=== PATIENT | male | born 1955 | race Caucasian/White ===

== ENCOUNTER 2018-04-29 07:24 | Emergency (ER) | payer OTHER ==
[~2018-04-29] VITALS: Wt 80.0 kg
[2018-04-29] MEDS ORDERED: SOD CHLORIDE 0.9% 1,000 ML IV STA (07:55)
[2018-04-29] MEDS ORDERED: TERI14TA PO (09:21)
[2018-04-29] MEDS ORDERED: ROSU10TA55 PO (09:23)
[2018-04-29] MEDS ORDERED: ALFU10TA2 PO (09:23)
[2018-04-29] MEDS ORDERED: ERGO500013 PO (09:23)
[2018-04-29] MEDS ORDERED: CLON1TAB13 PO (09:24)
[2018-04-29] MEDS ORDERED: OMEP40CA6 PO (09:25)
[2018-04-29] MEDS ORDERED: CYAN500T46 PO (09:25)
--- NOTE | 2018-04-29 10:06 | ERD ---
ER Documentation Chief Complaint Chief Complaint syncopal episode at home witnessed by son, no seizure activity, no trauma HPI This is a 63-year-old man who said he was in the living room walking across the room when he got dizzy, he said he felt lightheaded. He denied any chest pain or shortness of breath he said that he thought he might pass out so he laid down on the floor where his son said he passed out for 5-10 seconds and then woke up. When he woke up he said he felt a bit dizzy but it gradually resolved after a few minutes. He never had any chest pain or difficulty breathing no focal neurological complaints of numbness weakness speech change visual change or headache. The patient said he has been having some vague left upper chest pain off and on for the past 10 days but no pain today. ROS All systems reviewed and are negative except as per history of present illness. Medications Home Meds Reported Medications Omeprazole* (Omeprazole*) 40 Mg Capsule.dr, 40 MG PO AC B, #30 CAP 04/29/18 Cyanocobalamin* (Vitamin B12*) 500 Mcg Tab, 1000 MCG PO DAILY, TAB 04/29/18 Clonazepam* (Clonazepam*) 1 Mg Tablet, 1 MG PO DAILY PRN for ANXIETY, TAB 04/29/18 Rosuvastatin Calcium* (Crestor*) 10 Mg Tablet, 10 MG PO QHS, #30 TAB 04/29/18 Alfuzosin Hcl* (Alfuzosin Hcl*) 10 Mg Tab.er.24h, 10 MG PO DAILY 04/29/18 Ergocalciferol (Vitamin D2) (VITAMIN D2) 50,000 Unit Capsule, 89688 UNIT PO WEEKLY, CAP 04/29/18 Teriflunomide (Aubagio) 14 Mg Tablet, 14 MG PO DAILY 04/29/18 Allergies Allergies: Coded Allergies: No Known Allergy (Unverified , 04/29/18) PMhx/Soc History of Surgery: Yes (appendicitis) Anesthesia Reaction: No Hx Neurological Disorder: No Hx Respiratory Disorders: No Hx Cardiac Disorders: Yes (htn) Hx Psychiatric Problems: No Hx Miscellaneous Medical Probl: Yes (ms) Hx Alcohol Use: Yes (occasionally) Hx Substance Use: No Hx Tobacco Use: Yes (pack/day) Smoking Status: Heavy tobacco smoker FmHx Family History: No coronary disease Physical Exam Vitals Vital Signs Date Temp Pulse Resp B/P (MAP) Pulse Ox O2 O2 Flow FiO2 Time Delivery Rate 04/29/18 72 14 114/68 97 Room Air 08:15 (83) 68 112/67 (82) 70 106/66 (79) 04/29/18 68 14 117/79 95 Room Air 07:34 (92) 04/29/18 97.6 66 18 117/70 96 07:28 (86) Physical Exam Const: Well-developed, well-nourished Head: Atraumatic, normocephalic Eyes: Normal Conjunctiva, PERRLA, EOMI, normal sclera, no nystagmus ENT: Normal External Ears, Nose and Mouth, moist mucus membranes. Neck: Full range of motion. No meningismus, no lymphadenopathy. Resp: Clear to auscultation bilaterally, no wheezing, rhonchi, rales Cardio: Regular rate and rhythm, no murmurs, S1 S2 present Abd: Soft, non tender x 4, non distended. Normal bowel sounds, no guarding or rebound, no pulsitile abdominal masses or bruits Skin: No petechiae or rashes, no ecchymosis , no maculopapular rash Back: No midline or flank tenderness Ext: No cyanosis, or edema, FROM x 4, normal inspection, neurovascularly intact x 4 Neur: Awake and alert, STR 5/5 x 4, sensation intact x 4, no focal findings, cerebellum intact Psych: Normal Mood and Affect Result Diagram: 04/29/18 0753 04/29/18 0753 Results 24 hrs Laboratory Tests Test 04/29/18 07:53 White Blood Count 8.9 10^3/ul Red Blood Count 3.92 10^6/ul Hemoglobin 12.5 g/dl Hematocrit 39.3 % Mean Corpuscular Volume 100.3 fl Mean Corpuscular Hemoglobin 31.9 pg Mean Corpuscular Hemoglobin Concent 31.8 g/dl Red Cell Distribution Width 12.7 % Platelet Count 184 10^3/UL Mean Platelet Volume 11.2 fl Immature Granulocytes % 0.700 % Neutrophils % 75.1 % Lymphocytes % 14.9 % Monocytes % 7.9 % Eosinophils % 1.2 % Basophils % 0.2 % Nucleated Red Blood Cells % 0.0 /100WBC Immature Granulocytes # 0.060 10^3/ul Neutrophils # 6.7 10^3/ul Lymphocytes # 1.3 10^3/ul Monocytes # 0.7 10^3/ul Eosinophils # 0.1 10^3/ul Basophils # 0.0 10^3/ul Nucleated Red Blood Cells # 0.0 10^3/ul Sodium Level 143 mmol/L Potassium Level 3.9 mmol/L Chloride Level 107 mmol/L Carbon Dioxide Level 28 mmol/L Anion Gap 8 Blood Urea Nitrogen 18 mg/dl Creatinine 0.75 mg/dl Est Glomerular Filtrat Rate mL/min > 60 mL/min Glucose Level 122 mg/dl Calcium Level 9.0 mg/dl Troponin I < 0.012 ng/ml Current Medications Medications Dose Sig/Patti Start Time Status Last (Trade) Ordered Route PRN Stop Time Admin Dose Reason Admin Sodium 1,000 ml @ Q1H STAT 04/29/18 DC 04/29/18 Chloride 1,000 mls/hr IV 07:55 08:03 04/29/18 08:54 Procedures/MDM Ordering MD: MARLEEN MARION DO Location: E/R Room/Bed: PROCEDURE: CT Brain without contrast. CLINICAL INDICATION: Syncope. TECHNIQUE: A CT of the brain was performed on a multi-slice CT scanner u tilizing axial imaging from the skull base through the vertex without intravenous contrast. Multiplanar reformatted images were made. One or more the following dose reduction techniques were utilized: Automated exposure control, adjustment of the mA/ or kV according to patient's size, or use of iterative reconstruction technique. DICOM images are available for review. The CTDIvol is 39.4 mGy and the DLP is 634.2 mGycm. COMPARISON: None. FINDINGS: There is no intracranial hemorrhage, mass effect, or midline shift. No extra- axial fluid collection is seen. Mild atrophy is identified with compensatory ventricular and sulcal enlargement. Mild decreased attenuation is seen in the periventricular and deep white matter, compatible with microvascular ischemic disease. The emanuel white matter differentiation is well preserved with no acute infarct detected. The osseous structures and visualized paranasal sinuses are unremarkable. IMPRESSION: 1. No evidence of acute intracranial pathology. 2. Mild diffuse atrophy. 3. There is mild microvascular ischemic disease in the periventricular and deep white matter. RPTAT: HJAH .Francine Gamble MD, MD Date Time Electronically viewed and signed by .Francine Gamble MD, on 04/29/2018 08:39 .H/ CC: MARLEEN MARION DO [id number] Ordering MD: MARLEEN MARION DO Location: E/R Room/Bed: PROCEDURE: XR Chest. CLINICAL INDICATION: Syncope TECHNIQUE: Single frontal chest x-ray. COMPARISON: None. FINDINGS: No acute infiltrate, pleural effusion or pneumothorax is identified. Cardiomediastinal silhouette is within normal limits. The osseous structures are unremarkable. IMPRESSION: 1. No evidence of acute cardiopulmonary process. RPTAT: AAQQ .Rufino Floyd MD, Date Time Electronically viewed and signed by .Rufino Floyd MD, on 04/29/2018 08:20 .R/ CC: MARLEEN MARION DO [id number] EKG: Rate/Rhythm: Normal sinus rhythm heart rate 68 QRS, ST, QT: NORMAL TN, QRS, QT] Impression: NORMAL EKG The patient is refusing to be admitted to the hospital and he is going to sign out AGAINST MEDICAL ADVICE. I had extensive discussion with him at bedside about the risk of leaving AGAINST MEDICAL ADVICE including . I discussed with him that his syncope could be due to cardiac related he may have had an arrhythmia that could be fatal. Also told him it could be a cerebral issue or other hidden reason for his episode today. He states that he feels fine and is not worried and that he understands the risk of leaving including . The patient is awake alert oriented to make his own decisions Departure Diagnosis: Primary Impression: Syncope Syncope type: unspecified Qualified Codes: R55 - Syncope and collapse Condition: Fair MARLEEN MARION DO Apr 29, 2018 10:06
[2018-04-29 13:50] VITALS: BP 116/69; PULSE 86; RESP 17
== END 2018-04-29 14:03 | disposition left against medical advice (07) ==
LOC: E/R 07:24
DX: R55 Syncope and collapse (principal)
CPT/HCPCS: 36415; 70450; 71045; 80048; 84484; 85025; 93005; 96360; 96361; J7030; Z7502